=== PATIENT | male | born 1995 | race Caucasian/White ===

== ENCOUNTER 2019-10-27 22:15 | Emergency (ER) | payer MEDICAID, SELFPAY ==
--- NOTE | 2019-10-27 22:03 | ECG_ITS ---
APPROVED REPORT Exam: Resting ECG HR:85 bpm ECG Measurements Heart Rate [address] 148 P 53 QRSd 94 QRS 58 QT 352 T 53 QTc 418 <Conclusion> Normal sinus rhythm Normal ECG Electronically signed by : Alf Lino, 10/29/2019 08:26:31
[2019-10-27 22:16] VITALS: BP 145/103; PULSE 101; RESP 16; O2SAT 98; BMI 30.1
--- NOTE | 2019-10-27 22:40 | HMH.EDURI ---
ED Disposition Clinical Impression: Viral infection, COVID-19 Disposition: Home, Self-Care Condition on Discharge: Good Instructions: DI for Acute Bronchitis Prescriptions: Cholecalciferol (Vitamin D3) [Decara] 50,000 unit PO WEEKLY 30 Days #4 cap Transmission Status: Pending to [facility] #[id number] dexAMETHasone [Dexamethasone] 2 mg PO BID 5 Days #10 tab Transmission Status: Pending to [facility] #[id number] Losartan Potassium 100 mg PO DAILY 10 Days #10 tab Transmission Status: Pending to [facility] #[id number] Hydroxychloroquine Sulfate [Plaquenil 200mg tablet] 200 mg PO BID 10 Days #20 tab Transmission Status: Pending to [facility] #[id number] Referrals: PCP,No [Primary Care Provider] - - Critical Care Critical Care Time: No Attestation: On 10/27/19, the high probability of a clinically significant, sudden or life threatening deterioration of the following system(s) required my full and direct attention, intervention and personal management. The time I documented below is in addition to time spent performing reported procedures but includes the following listed in this critical care notation. Medical Decision Making - Medical Records Medical records reviewed: Yes: I reviewed the patient's medical records. - Too Inquiry Pt receiving controlled substance: No Vital Signs: 10/27/19 22:16 10/27/19 23:47 Pulse Rate [Left Radial] 101 H 91 H Respiratory Rate 16 18 Blood Pressure [Right Arm] 145/103 H 138/87 Blood Pressure Mean [Right Arm] 117 104 Blood Pressure Source [Right Arm] Automatic Cuff Blood Pressure Position [Right Arm] Sitting 02 Sat by Pulse Oximetry 98 97 Oxygen Delivery Method Room Air Room Air - Lab Data Lab results reviewed: Yes: I reviewed the patient's lab results. Lab Results 10/27/19 22:35: SARS-CoV-2 IgG Ab (Rapid) Negative, SARS-CoV-2 IgM Ab (Rapid) Negative 10/27/19 23:00: Group A Strep Rapid Negative Orders (Tests/Meds): ED MEDICATIONS Generic Name Dose Route Start Last Admin Trade Name Freq PRN Reason Stop Dose Admin Hydroxychloroquine Sulfate 400 mg 10/28/19 09:00 Plaquenil 200mg Tablet PO 11/11/19 08:59 PC REFUGIO Discontinued Medications Generic Name Dose Route Start Last Admin Trade Name Freq PRN Reason Stop Dose Admin Albuterol/Ipratropium 1 puff 10/27/19 22:22 Combivent Respimat 20mcg/100mcg Inhaler IH 10/27/19 22:23 ONCE ONE Dexamethasone Sodium Phosphate 10 mg 10/27/19 22:21 10/27/19 23:48 Decadron 4mg/Ml 1ml Vial IM 10/27/19 22:22 10 mg ONCE ONE Administration Irbesartan 300 mg 10/27/19 22:21 10/27/19 23:47 Avapro 300mg Tablet PO 10/27/19 22:22 Not Given ONCE ONE Miscellaneous 1 unit 10/27/19 22:22 Aerochamber/Optihaler MC 10/27/19 22:23 ONCE ONE ORDERS Category Date Time Status Coronavirus 19 Swab (OUTPT) Routine Lab 10/27/19 22:35 Received Strep Screen Confirmation Stat Micro 10/27/19 23:00 Received Medical Decision Narrative: Given the fact patient is had confirmed positive exposures and has acute symptoms presently we will go ahead and initiate treatment until we get the results back of his COVID test. We will also have him self isolate for 14 days. URI/Sore Throat HPI - General Chief Complaint: Upper Respiratory Infection Stated Complaint: Cough, sore throat Time Seen by Provider: 10/27/19 22:40 Mode of Arrival: Ambulatory Source of Information: Patient Limitations: No Limitations Description of Symptoms (Recalled from ER Triage Doc. by RN): pt stated he started to have a sore throat yesterday that progressed to a progressive cough today. pt denies any fever at home. - History of Present Illness HPI Narrative: 24-year-old male presents the ED with a sore throat shortness of breath and cough. Patient also states that he has had subjective fever shakes and chills. 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
[2019-10-27 23:38] LABS: Coronavirus 19 IgG Antibody Negative (Negative)
[2019-10-27 23:39] LABS: Coronavirus 19 IgM Antibody Negative (Negative)
[2019-10-27 23:47] VITALS: BP 138/87; PULSE 91; RESP 18; O2SAT 97
[2019-10-27 23:48] LABS: Strep Scrn Group A (Rapid) Negative (Negative)
[2019-10-28 00:12] VITALS: BP 132/80; PULSE 94; RESP 16; TEMP 36.9; O2SAT 98
== END 2019-10-28 00:15 | disposition home or self-care (01) ==
PROVIDERS: Emergency Provider Family Medicine
DX: Z20.828 Contact with and (suspected) exposure to other viral communicable diseases (principal); R05 Cough; R06.02 Shortness of breath
CPT/HCPCS: 36415; 86328; 87430; 93005; 96372; 96375; 99282; U0003

== ENCOUNTER 2021-04-06 09:36 | Emergency (ER) | payer BC, SELFPAY ==
[2021-04-06 10:31] VITALS: BP 139/93; PULSE 87; RESP 18; TEMP 37.3; O2SAT 99; BMI 30.8
--- NOTE | 2021-04-06 10:58 | HMH.EDUTC ---
[facility] [place] Disposition Clinical Impression: Viral syndrome, Exposure to COVID-19 virus, Bronchitis Disposition: Home, Self-Care Condition on Discharge: Good Instructions: DI for Acute Bronchitis, DI for Viral Syndrome, DI for COVID-19 (Suspected or Confirmed ), Preventing the Spread of Coronavirus Discharge Instructions Additional Instructions: Drink plenty of fluids. Take tylenol or ibuprofen for pain or fever. Take the medications as directed. Follow up with your regular doctor. GO TO THE ER FOR ANY WORSENING SYMPTOMS Quarantine until you know the results of your covid-19 test. If it is positive, the health department should call you and give you further instructions about your length of Quarantine and other things. Notify your school or workplace of your results and follow their instructions regarding return to work/school. Prescriptions: Brompheniramine/Pseudoephed/Dm [Bromfed Dm Cough Syrup] 5 ml PO Q6HP PRN #240 ml PRN Reason: Cough Transmission Status: Received by [id number] methylPREDNISolone [Medrol] 4 mg PO DIRECTED 6 Days #21 packet Transmission Status: Received by [id number] Azithromycin [Z-Chase 250mg Tab*] 250 mg PO UD DOSE PK #6 tab Transmission Status: Received by [id number] Referrals: Provider,Referral, MD [Primary Care Provider] - Forms: Work/School Release Time of Disposition: 11:48 Medical Decision Making - Medical Records Medical records reviewed: No: I reviewed the patient's medical records. - Too Inquiry Pt receiving controlled substance: No Vital Signs: 04/06/21 10:31 04/06/21 12:26 Temperature 99.1 F 99.1 F Temperature Source Oral Pulse Rate 87 Pulse Rate [Left] 87 Respiratory Rate 18 18 Blood Pressure 139/93 H Blood Pressure [Right Arm] 139/93 H Blood Pressure Mean [Right Arm] 108 02 Sat by Pulse Oximetry 99 - Lab Data Lab results reviewed: Yes: I reviewed the patient's lab results. [facility] [place] HPI - General Stated complaint: covid test/symptoms Time Seen by Provider: 04/06/21 10:58 Mode of Arrival: Ambulatory Source of Information: Patient Limitations: No Limitations Description of Symptoms (Recalled from Triage Doc. by RN): pt wants a covid test. pt was exposed 1.10. pt c/o body aches, chills and a FULTON. HEENT Symptoms (Recalled from RN notes): Yes (FULTON) Resp Symptoms (Recalled from RN notes): No Skin Symptoms (Recalled from RN notes): No MS Symptoms (Recalled from RN notes): No Functional Status (Recalled from RN notes): WNL - History of Present Illness Provider Complaint: He c/o cough and chest congestion for the past 3 days. He was exposed to covid-19 on 04/01. - Related Data Previous Rx's Medication Instructions Recorded Cholecalciferol (Vitamin D3) 50,000 unit PO WEEKLY 30 Days #4 10/27/19 [Decara] cap Hydroxychloroquine Sulfate 200 mg PO BID 10 Days #20 tab 10/27/19 [Plaquenil 200mg tablet] Losartan Potassium 100 mg PO DAILY 10 Days #10 tab 10/27/19 dexAMETHasone [Dexamethasone] 2 mg PO BID 5 Days #10 tab 10/27/19 Azithromycin [Z-Chase 250mg Tab*] 250 mg PO UD DOSE PK #6 tab 04/06/21 Brompheniramine/Pseudoephed/Dm 5 ml PO Q6HP PRN #240 ml 04/06/21 [Bromfed Dm Cough Syrup] methylPREDNISolone [Medrol] 4 mg PO DIRECTED 6 Days #21 04/06/21 packet Allergies Allergy/AdvReac Type Severity Reaction Status Date / Time No Known Allergies Allergy Verified 10/27/19 23:35 - Worker's Comp Is this a Worker's Comp case?: No [facility] History - Hepatitis A Screen Drug use history?: No High risk sexual behaviors?: No History of sexually transmitted infection?: No Currently employed?: No Childcare worker?: No Do you have indoor plumbing?: Yes Do you have electricity?: Yes Attestation statement:: This patient has been screened for Hepatitis A risk factors. I have reviewed the patient's past medical history: Yes ROS Obtained: Yes All systems reviewed & no additional complaints - Constituti
[2021-04-06 12:26] VITALS: BP 139/93; PULSE 87; RESP 18; TEMP 37.3
== END 2021-04-06 12:27 | disposition home or self-care (01) ==
PROVIDERS: Emergency Provider Nurse Practitioner Family
DX: J20.9 Acute bronchitis, unspecified (principal); B34.9 Viral infection, unspecified
CPT/HCPCS: 99202; C9803; G0463; U0003; U0005

== ENCOUNTER → 2021-05-02 10:36 | Outpatient (CLI) | payer BC, SELFPAY ==
[2021-05-02 11:16] LABS: Hematocrit 48.8 % (42.0-52.0); Hemoglobin 16.2 g/dL (14.1-18.0); Mean Corpuscular HGB Conc 33.2 g/dL (31.8-35.4); Mean Corpuscular Hemoglobin 29.2 pg (27.0-31.2); Platelet Count 302 K/mm3 (142-424); Red Blood Count 5.54 M/mm3 (4.60-6.20); Red Cell Distribution Width 13.2 % (11.5-17.5); White Blood Count 7.3 K/mm3 (4.8-10.8)
[2021-05-02 12:33] LABS: Hemoglobin A1C 5.5 % (4.0-6.0)
[2021-05-02 12:55] LABS: Chol/HDL Ratio 4.6 (1-3.5); Cholesterol 157 mg/dl (140-200); HDL Cholesterol 34 mg/dl (40-60); Triglycerides 83 mg/dl (30-150); VLDL Cholesterol 17 mg/dL (0-40)
[2021-05-02 13:06] LABS: Direct LDL Cholesterol 108.67 mg/dL (100-129)
[2021-05-02 13:25] LABS: Prostate Specific Ag Screen 0.9 ng/ml (0.0-4.0)
[2021-05-03 11:24] LABS: LH 5.4 mIU/mL (1.7-8.6)
== END ==
PROVIDERS: PCP Nurse Practitioner Family; Visit Provider General Practice
DX: E34.9 Endocrine disorder, unspecified (principal); R73.09 Other abnormal glucose; R68.89 Other general symptoms and signs; Z13.220 Encounter for screening for lipoid disorders; Z12.5 Encounter for screening for malignant neoplasm of prostate
CPT/HCPCS: 36415; 80061; 83002; 83036; 84403; 85014; 85018; 85048; 85049; G0103

== ENCOUNTER → 2022-02-26 10:31 | Outpatient (CLI) | payer BC, SELFPAY ==
[2022-02-26 18:12] LABS: Alanine Aminotransferase 27 U/L (12-78); Albumin Level 4.7 g/dl (3.5-5.0); Albumin/Globulin Ratio 1.7 (1.1-1.8); Alkaline Phosphatase 80 U/L (38-126); Anion Gap 15.4 mEq/L (5-15); Aspartate Amino Transferase 28 U/L (17-59); Bilirubin,Total 0.4 mg/dl (0.2-1.3); Blood Urea Nitrogen 19 mg/dl (9-20); Calcium 9.8 mg/dl (8.4-10.2); Carbon Dioxide 24 mmol/L (22.0-30.0); Chloride 106 mmol/L (98-107); Estimated Glomerular Filt Rate 101 ml/min (>60); GFR (African American) 122 ML/MIN (>60); Globulin 2.7 g/dL (1.3-3.2); Glucose 93 mg/dl (74-100); Potassium 4.4 mmoL/L (3.5-5.1); Sodium 141 mmol/L (136-145); Total Protein,Serum 7.4 g/dl (6.3-8.2)
[2022-02-26 18:28] LABS: Basophils # 0.1 K/mm3 (0-0.2); Basophils % 0.8 % (0.1-2.0); Eosinophils # 0.1 K/mm3 (0.0-0.4); Eosinophils % 1.1 % (0.1-12.0); Hematocrit 49.3 % (42.0-52.0); Mean Corpuscular HGB Conc 32.5 g/dL (31.8-35.4); Mean Corpuscular Hemoglobin 29.2 pg (27.0-31.2); Mean Platelet Volume 9.6 fl (7.4-10.4); Monocytes # 0.6 K/mm3 (0.1-1.0); Monocytes % 7.6 % (1.7-9.3); Neutrophils # 5.5 K/mm3 (1.8-7.8); Neutrophils % 66.4 % (37.0-80.0); Platelet Count 325 K/mm3 (142-424); Red Blood Count 5.48 M/mm3 (4.60-6.20); Red Cell Distribution Width 13.5 % (11.5-17.5); White Blood Count 8.3 K/mm3 (4.8-10.8)
[2022-02-26 18:41] LABS: Thyroid Stimulating Hormone 1.97 uIU/mL (0.465-4.68)
== END ==
PROVIDERS: PCP Nurse Practitioner Family; Visit Provider Nurse Practitioner Family
DX: F98.8 Other specified behavioral and emotional disorders with onset usually occurring in childhood and adolescence (principal)
CPT/HCPCS: 80053; 84443; 85025

== ENCOUNTER 2022-11-15 17:12 | Emergency (ER) | payer OTHER, SELFPAY ==
--- NOTE | 2022-11-15 17:30 | PC.NURSE ---
rounded on pt advised we were full and that we would get him as soon as possible
[2022-11-15 18:41] VITALS: BP 134/87; PULSE 86; RESP 18; TEMP 36.7; O2SAT 98; BMI 35.2
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
[2022-11-15 19:38] VITALS: BP 134/87; PULSE 86; RESP 18; TEMP 36.7; O2SAT 98
[2022-11-18 05:52] LABS: HBsAg Screen Negative (Negative); HCV Ab Non Reactive (Non Reactive); HIV Screen 4th Generation wRfx Non Reactive (Non Reactive); Hep A Ab, IGM Negative (Negative); Hep B Core Ab, IgM Negative (Negative)
== END 2022-11-15 19:39 | disposition home or self-care (01) ==
PROVIDERS: Emergency Provider Physician Assistant; PCP Family Medicine
DX: Z77.21 Contact with and (suspected) exposure to potentially hazardous body fluids (principal); F90.9 Attention-deficit hyperactivity disorder, unspecified type; F32.A Depression, unspecified
CPT/HCPCS: 80074; 86703; 99212; 99214; G0432; G0463

== ENCOUNTER → 2022-12-03 14:04 | Outpatient (CLI) | payer OTHER, SELFPAY | PROVIDERS: PCP Family Medicine; Visit Provider Family Medicine | DX: G47.33 Obstructive sleep apnea (adult) (pediatric) (principal); R06.83 Snoring; R53.83 Other fatigue | CPT/HCPCS: G0399 ==